=== PATIENT | female | born 1995 | race Caucasian/White ===

== ENCOUNTER 2024-04-27 12:15 | Outpatient (CLI) | payer OTHER ==
--- NOTE | 2024-04-27 16:42 | XRAY Report ---
PROCEDURE: Foot 3+V LT INDICATIONS: UNSPECIFIED SPRAIN OF LEFT FOOT TECHNIQUE: 3 views of the foot were acquired. COMPARISON: None. FINDINGS: No acute fracture or dislocation. The joint spaces are preserved. The Lisfranc interval is preserved on the nonweightbearing view. No significant tibiotalar joint effusion. IMPRESSION: No acute fracture or dislocation of the left foot. Reviewed by: Riley Carrizales MD on 04/27/2024 4:40 PM PDT Approved by: Riley Carrizales MD on 04/27/2024 4:40 PM PDT Station ID: [id number]
== END 2024-04-27 12:30 | disposition home or self-care (01) ==
LOC: DI.N 12:15
PROVIDERS: ATTEND Physician Assistant Medical
DX: S93.602A Unspecified sprain of left foot, initial encounter (principal)